=== PATIENT | female | born 1950 | race Caucasian/White ===

== ENCOUNTER → 2018-02-26 | Outpatient (CLI) | payer MEDICARE | LOC: LABWHC1 08:12 | PROVIDERS: ATTEND Nurse Practitioner | DX: R42 Dizziness and giddiness (principal); I10 Essential (primary) hypertension | CPT/HCPCS: 93005 ==

== ENCOUNTER → 2018-05-07 | Outpatient (CLI) | payer MEDICARE ==
--- NOTE | 2018-05-07 10:31 | ECHOF ---
Referral Reason:R01.1 heart murmur MEASUREMENTS -------- HEIGHT: 157.5 cm WEIGHT: 87.5 kg BP: RVIDd: 2.8 cm (< 3.3) IVSd: 1.2 cm (0.6 - 1.1) LVIDd: 4.2 cm (3.9 - 5.3) LVPWd: 1.2 cm (0.6 - 1.1) IVSs: 1.6 cm LVIDs: 2.5 cm LVPWs: 1.6 cm LAESV Index (A-L): 23.97 ml/m Ao Diam: 3.0 cm (2.0 - 3.7) AV Cusp: 1.7 cm (1.5 - 2.6) LA Diam: 3.3 cm (2.7 - 3.8) MV EXCURSION: 14.642 mm (> 18.000) MV EF SLOPE: 85 mm/s (70 - 150) EPSS: 0.6 cm MV E Alfredo: 0.84 m/s MV DecT: 252 ms MV A Alfredo: 1.02 m/s MV E/A Ratio: 0.83 AV maxP.40 mmHg AV meanP.36 mmHg RAP: 5.00 mmHg RVSP: 31.31 mmHg FINDINGS -------- Resting bradycardia (HR<60bpm). This was a technically adequate study. The left ventricular size is normal. There is mild concentric left ventricular hypertrophy. Overa ll left ventricular systolic function is normal with, an EF between 55 - 60 %. The right ventricle is mildly enlarged. Normal LA size by volume 22+/-6 ml/m2. The right atrium is normal in size. Aortic valve is trileaflet and is mildly thickened. There is no evidence of aortic regurgitation. There is no evidence of aortic stenosis. The mitral valve leaflets are mildly thickened. There is trace to mild mitral regurgitation. Trace tricuspid regurgitation present. Right ventricular systolic pressure is normal at < 35 mmHg. There is no evidence of pulmonary hypertension. The pulmonic valve was not well visualized. The aortic root size is normal. Normal inferior vena cava with normal inspiratory collapse consistent with estimated right atrial pre ssure of 5 mmHg. There is no pericardial effusion. CONCLUSIONS -------- 1. Resting bradycardia (HR<60bpm). 2. This was a technically adequate study. 3. The left ventricular size is normal. 4. There is mild concentric left ventricular hypertrophy. 5. Overall left ventricular systolic function is normal with, an EF between 55 - 60 %. 6. The right ventricle is mildly enlarged. 7. Normal LA size by volume 22+/-6 ml/m2. 8. Aortic valve is trileaflet and is mildly thickened. 9. The mitral valve leaflets are mildly thickened. 10. There is trace to mild mitral regurgitation. 11. Trace tricuspid regurgitation present. 12. Right ventricular systolic pressure is normal at < 35 mmHg. 13. There is no evidence of pulmonary hypertension. 14. The pulmonic valve was not well visualized. 15. The aortic root size is normal. 16. There is no pericardial effusion. LEGAL CONSULTANT: Héctor Modi RDCS
== END | disposition home or self-care (01) ==
LOC: EDSTATUS 04-14 11:30 → RADECHMAIN 08:15
PROVIDERS: ATTEND Family Medicine
DX: I34.0 Nonrheumatic mitral (valve) insufficiency (principal); R00.1 Bradycardia, unspecified
CPT/HCPCS: 93306

== ENCOUNTER → 2021-10-29 | Outpatient (CLI) | payer MEDICARE ==
--- NOTE | 2021-10-30 08:00 | ECHOF ---
Referral Reason:R01.1 Murmur MEASUREMENTS -------- HEIGHT: 154.9 cm WEIGHT: 89.8 kg BP: RVIDd: 3.7 cm (< 3.3) IVSd: 0.9 cm (0.6 - 1.1) LVIDd: 3.8 cm (3.9 - 5.3) LVPWd: 1.1 cm (0.6 - 1.1) IVSs: 1.5 cm LVIDs: 2.1 cm LVPWs: 1.7 cm LAESV Index (A-L): 24.00 ml/m Ao Diam: 2.8 cm (2.0 - 3.7) AV Cusp: 1.9 cm (1.5 - 2.6) LA Diam: 4.4 cm (2.7 - 3.8) MV E Alfredo: 0.82 m/s MV DecT: 180 ms MV A Alfredo: 1.01 m/s MV E/A Ratio: 0.81 RAP: 5.00 mmHg RVSP: 36.20 mmHg FINDINGS -------- Sinus rhythm. This was a technically adequate study. The left ventricular size is normal. Left ventricular wall thickness is normal. Overall left vent ricular systolic function is normal with, an EF between 55 - 60 %. The diastolic filling pattern is normal for the age of the patient 11.13. The right ventricle is mildly enlarged. Normal LA size by volume 22+/-6 ml/m2. The right atrial size is normal. Interatrial and interventricular septum intact. The aortic valve is trileaflet and appears structurally normal. There is no evidence of aortic regu rgitation. There is no evidence of aortic stenosis. No mitral regurgitation. Mild tricuspid regurgitation present. There is borderline pulmonary artery hypertension. The righ t ventricular systolic pressure, as measured by Doppler, is 36.20mmHg. There is no pulmonic regurgitation present. The aortic root size is normal. The inferior vena cava is mildly dilated. Echo free space represents a pericardial fat pad. There is no pericardial effusion. CONCLUSIONS -------- 1. The left ventricular size is normal. 2. Left ventricular wall thickness is normal. 3. Overall left ventricular systolic function is normal with, an EF between 55 - 60 %. 4. The diastolic filling pattern is normal for the age of the patient 11.13 5. The right ventricle is mildly enlarged. 6. The aortic valve is trileaflet and appears structurally normal. 7. Mild tricuspid regurgitation present. 8. There is borderline pulmonary artery hypertension. 9. The right ventricular systolic pressure, as measured by Doppler, is 36.20mmHg. 10. The inferior vena cava is mildly dilated. CERTIFIED NOVELL ENGINEER: Jami Richard RDCS
== END | disposition home or self-care (01) ==
LOC: RADECHMAIN 12:59
PROVIDERS: ATTEND Family Medicine
DX: I07.1 Rheumatic tricuspid insufficiency (principal); I27.21 Secondary pulmonary arterial hypertension
CPT/HCPCS: 93306

== ENCOUNTER → 2022-02-27 | Outpatient (CLI) | payer MEDICARE ==
[2022-02-27 11:29] LABS: Partial Thromboplastin Time 24.9 sec (22.0-30.0); Prothrombin Time 10.6 sec (9.0-12.0)
[2022-02-27 14:35] LABS: HCT 44.1 % (37.2-46.3); HGB 14.4 g/dL (12.0-15.0); MCH 31.2 pg (27.0-32.0); MCHC 32.7 g/dL (32.0-37.0); MCV 95.5 fL (80.0-97.0); Mean Platelet Volume 10.7 fL (9.5-12.2); NRBC Per 100 WBC 0 /100 WBCS (0.0-0.0); Platelet Count 268 X 10*3/uL (140-440); RBC 4.62 X 10*6/uL (4.10-5.20); RDW 12.4 % (11.5-14.5); WBC 5.42 X 10*3/uL (4.50-10.00)
[2022-02-27 15:15] LABS: African American GFR (CKD) 102.5 (60.0-200.0); Albumin 4.4 g/dL (3.8-4.9); Albumin/Globulin Ratio 1.52 (1.60-3.17); Anion Gap 12.1 mmol/L (10.00-18.00); BUN/Creat Ratio 18.57 Ratio (12.00-20.00); Calcium 9.5 mg/dL (8.7-10.3); Carbon Dioxide 25.9 mmol/L (20.0-27.5); Globulin 2.9 g/dL (1.6-3.3); Non-African American GFR(CKD) 88.4 (60.0-200.0); Potassium 4.5 mmol/L (3.5-5.5); Total Protein 7.3 g/dL (6.2-8.2)
[2022-02-27 19:04] LABS: Appearance,Urine Cloudy (Clear); Bilirubin,Urine Negative (Negative); Blood,Urine Negative (Negative); Color,Urine Yellow (Yellow); Ketones,Urine Negative (Negative); Nitrite,Urine Negative (Negative); Specific Gravity,Urine 1.018 (1.001-1.030); Urobilinogen,Urine 0.2 (0.2,1.0)
[2022-02-27 19:13] LABS: Bacteria,Urine None Seen /HPF (None Seen)
== END | disposition home or self-care (01) ==
LOC: LABPAT 09:22
PROVIDERS: ATTEND Orthopaedic Surgery
DX: Z01.812 Encounter for preprocedural laboratory examination (principal); M17.11 Unilateral primary osteoarthritis, right knee
CPT/HCPCS: 80053; 81001; 85027; 85610; 85730; 87070; 93005

== ENCOUNTER 2022-03-27 14:00 | Day surgery (SDC) | payer MEDICARE ==
[2022-03-21 15:21] VITALS: BMI 36.2
[~2022-03-27 14:00] MED LIST: ACETAMINOPHEN TAB 500 MG TAB PO PRN; DEXAMETHASONE SOD PHOSPHATE 10 MG/ML 1 ML VIAL IV PRN; DEXAMETHASONE SOD PHOSPHATE 4 MG/ML 1 ML VIAL IV ONE; DOCUSATE 100 MG CAP PO PRN; FAMOTIDINE 20 MG/2 ML VIAL IVP PRN; HYDROmorphone 0.5 MG/0.5 ML SYRINGE IVP PRN; KETOROLAC 15 MG/ML 1 ML VIAL IVP PRN; ONDANSETRON 4 MG/2 ML VIAL IVP ONE; ONDANSETRON 4 MG/2 ML VIAL IVP PRN; ROPIVACAINE/EPI/CLONIDINE/KET 50 ML SYRINGE MISCELLANE PRN; TRANEXAMIC ACID IN NACL,ISO-OS 1,000 MG in SALINE 1 100ML.BAG IVPB PRN; oxyCODONE ER 10 MG TAB.ER.12H PO PRN
[2022-03-27] MEDS ORDERED: LACTATED RINGERS 1,000 ML IV ONE (14:58)
[2022-03-27] MEDS ORDERED: fentaNYL (PF) 50 MCG/ML 2 ML AMP IVP ONE (15:03)
[2022-03-27] MEDS ORDERED: MIDAZOLAM 2 MG/2 ML VIAL IVP ONE (15:03)
[2022-03-27] MEDS ORDERED: TRANEXAMIC ACID IN NACL,ISO-OS 1,000 MG in SALINE 1 100ML.BAG IVPB ONE (15:36)
[2022-03-27] MEDS ORDERED: ROPIVACAINE 5 MG/ML 30 ML VIAL ONE (16:24)
[2022-03-27] MEDS ORDERED: ePHEDrine 50 MG/ML 1 ML VIAL ONE (16:24)
[2022-03-27] MEDS ORDERED: PROPOFOL 10 MG/ML 20 ML VIAL IV ONE (16:24)
[2022-03-27] MEDS ORDERED: TRANEXAMIC ACID IN NACL,ISO-OS 1,000 MG/100 ML BAG ONE (16:24)
[2022-03-27] MEDS ORDERED: SODIUM CHLORIDE 0.9% (PF) 10 ML VIAL ONE (16:24)
[2022-03-27] MEDS ORDERED: MIDAZOLAM 2 MG/2 ML VIAL ONE (16:24)
[2022-03-27] MEDS ORDERED: LIDOCAINE 2% INJ 20 MG/ML (2 ML VIAL) ONE (16:24)
--- NOTE | 2022-03-27 16:53 | P.ANPRN ---
Procedure Note - Anesthesia - Nerve Block Performed Right Adductor Canal Single Time Out Performed: Yes (1502) Date of Procedure: 03/27/22 Procedure Start Time: 15:03 Procedure Stop Time: 15:08 Location of Patient: PreOp Indication: Acute Post-Operative Pain, Requested by Surgeon Specifically requested for management of pain by DrAlfred: Mann James Sedation Type: Sedate with meaningful contact maintained Preparation: Sterile Prep, Sterile Dressing Position: Supine Catheter: None Needle Types: Pajunk Needle Gauge: 21 Ultrasound used to visualize needle placement: Yes Ultrasound used to observe medication spread: Yes Injectate: 0.5% Ropivacaine (see comment for volume) (15CC + 15CC NACL PF) Blood Aspirated: No Pain Paresthesia on Injection Noted: No Resistance on Injection: Normal Image Stored and Saved: Yes Events: Uneventful and Well Tolerated
--- NOTE | 2022-03-27 16:54 | P.ANPRN ---
Procedure Note - Anesthesia - Nerve Block Performed Right iPack Single Time Out Performed: Yes (5800) Date of Procedure: 03/27/22 Procedure Start Time: 15:09 Procedure Stop Time: 15:10 Location of Patient: PreOp Indication: Acute Post-Operative Pain, Requested by Surgeon Specifically requested for management of pain by DrAlfred: Mann James Sedation Type: Sedate with meaningful contact maintained Preparation: Sterile Prep Position: Supine Catheter: None Needle Types: Pajunk Needle Gauge: 21 Ultrasound used to visualize needle placement: Yes Ultrasound used to observe medication spread: Yes Injectate: 0.5% Ropivacaine (see comment for volume) (15CC + 15CC NACL PF) Blood Aspirated: No Pain Paresthesia on Injection Noted: No Resistance on Injection: Normal Image Stored and Saved: Yes Events: Uneventful and Well Tolerated
[2022-03-27] MEDS: ROPIVACAINE/EPI/CLONIDINE/KET 50 ML SYRINGE MISCELLANE PRN ×2 (17:13→17:35)
--- NOTE | 2022-03-27 18:49 | P.OP ---
Date of Procedure: 03/27/22 Preoperative Diagnosis: 1. Severe right knee osteoarthritis 2. Hypertension 3. Chronic right foot drop Postoperative Diagnosis: Same Procedure(s) Performed: Right total knee arthroplasty Implants: 1. [place] [employer] CR Femur Size #2 2. [place] [employer] [place] Tibial Base Size #3 3. [place] [employer] CS poly Size #3, 10-mm 4. [place] [employer] all poly patella, Size #29 Anesthesia: regional, spinal Surgeon: Mann James Clinical Science Consultant #1: Ana Lee Estimated Blood Loss (ml): 100 IV fluids (ml): 700 Pathology: none sent Condition: stable Disposition: PACU Indications for Procedure: I met with the patient preoperatively in the office setting and discussed treatment of their symptomatic knee arthritis. They failed a long course of nonsurgical treatment and elected to proceed with an elective total knee replacement. I discussed the potential risks and complications at length and gave them ample time to ask questions. Risks discussed included: risks from anesthesia, superficial site surgical infection, acute and/or chronic periprosthetic joint infection, delayed wound healing, drainage, wound necrosis, instability, stiffness, stiffness requiring manipulation and/or revision surgery, damage to local blood vessels or nerves, aseptic loosening of the implants, extensor mechanism issues including disruption, patellar maltracking, avascular necrosis etc., continued or worsened knee pain, generalized dissatisfaction with surgical outcome, need for revision surgery, an inability to regain preinjury level of function, DVT, PE, other medical complications, and possibly loss of life or limb. The patient voiced their understanding that while these are the most common complications other less common complications are possible. They provided both their verbal and written consent to go forward with surgery. Operative Findings: Severe tricompartmental osteoarthritis with complete cartilage loss and exposed subchondral bone diffusely throughout the knee Description of Procedure: The patient was identified in preoperative holding and the correct operative extremity was verified and marked with a marker. I reviewed the consent form with the patient at length. All of their questions were answered. The patient was given a block by anesthesia. They were then brought back to the operating room. They were transferred onto the operating room table where a general anesthetic, preoperative antibiotics, and tranexamic acid were administered by anesthesia. A tourniquet was applied to the proximal aspect of the operative extremity. The contralateral extremity was padded under the heel and secured to the operating room table with a nonsterile blue towel and tape. The ipsilateral arm was carefully draped across the patient's chest and secured with a pillow and foam. A post was applied over the lateral aspect of the ipsilateral thigh and a bolster was placed under the ipsilateral foot. I verified that the operative extremity was stable and the knee was flexed to 90. The operative extremity was then placed in a leg harden, nonsterile drapes were applied, and the extremity was prepped and draped sterilely in the standard sterile fashion. Prior to starting surgery timeout was performed identifying the correct patient, operative extremity, and procedure. The leg was then elevated, exsanguinated with an Esmarch bandage, and the tourniquet was inflated. An anterior midline incision was made sharply with a scalpel. Once I had dissected deep to the superficial fascial layer medial and lateral flaps were elevated. A medial parapatellar arthrotomy was created. Upon opening the knee joint there were diffuse arthritic changes in all 3 compartments. The anterior horn of the medial meniscus were sharply released and a medial release was performed around the posterior medial corner of the knee to facilitate retractor placement. The fat pad was excised with electrocautery. The patella was found to be severely arthritic and a provisional cut was made with a sagittal saw to facilitate mobilization of the extensor mechanism during the procedure. Remnants of the ACL and PCL were then excised from the notch. 4 mm pins were then placed within the incision in the medial distal femur and proximal tibia. Arrays were applied to the pins and I verified they were completely tightened. The knee was then registered with the [employer] robot and manipulations in implant position were made to balance the knee and opitmize implant position. Using the Fan robotic saw all cuts were made in accordance with our plan. After all bony fragments had been removed the cuts were verified with the planar probe. The tibia was then subluxed forward and sized. The knee was brought into flexion and a lamina pipelaying fitter was placed to allow removal of the meniscal remnants both medially and laterally as well as posterior osteophytes. Local anesthetic was then infiltrated around the joint capsule. Trial implants were then placed within the knee. Range of motion and collateral ligament tension was then evaluated. Adjustments in implant size and position were then made accordingly. Once the knee was felt to be appropriately balanced the Fan pins were removed. The patella was then recut, sized, and punched. A trial patellar button was then placed. With the trial components in place, the patella tracked midline. The femur was then drilled and the trial component removed. The trial tibial component was then appropriately rotated, pinned, and prepared for the keel. All trial components were then removed from the knee. The knee was thoroughly irrigated with pulsatile lavage. Cement was prepared via vacuum mixing in a bowl on the back table. I then hand pressurized cement into the femur and tibia and placed the implants beginning with the tibial base tray and poly liner, femoral component, and finally the patellar button. All extruded cement was removed including from the pin sites. Once the cement had hardened the knee was evaluated one final time with the final polyethylene liner in place. The knee had full extension and flexion and felt stable to varus and valgus stress t hroughout the arc of motion. The tourniquet was released and with the tourniquet down the patella tracked midline. All bleeders were controlled with electrocautery. The knee was then soaked for 3 minutes with a dilute Betadine soak. The knee was thoroughly irrigated using 3 L of sterile saline and pulsatile lavage. The extensor mechanism was then reapproximated using pop off Vicryl sutures followed by a running barbed suture. The knee was then closed in layers with a 0 strata fix for the deep fascial layer, 2-0 strata fix for the superficial subcutaneous layer and Monocryl and Steri-Strips for the skin. A sterile dressing was applied. I verified that all instrument, sponge, and sharp counts were correct. The patient was then transferred off the operating room table, extubated, and brought to recovery having tolerated the procedure well. Ana Lee PA-C was required as a skilled insurance administrative assistant due to the complexity of the procedure for patient positioning, draping, retraction, placement of hardware, and closure of wound. PLAN: The patient can weight-bear as tolerated on the operative extremity. DVT prophylaxis with aspirin 81 mg twice a day based on preoperative risk str atification. Follow-up in the office in 2 weeks for wound check and x-rays of the knee including an AP and lateral.
[2022-03-27] MEDS ORDERED: HYDROmorphone 0.5 MG/0.5 ML SYRINGE IVP PRN ×3 (18:50)
[2022-03-27] MEDS ORDERED: hydrOXYzine pamoate 25 MG CAP PO PRN (18:50)
[2022-03-27] MEDS ORDERED: NALOXONE 0.4 MG/ML 1 ML VIAL IV PRN (18:50)
[2022-03-27] MEDS ORDERED: traMADol 50 MG TAB PO PRN (18:55)
[2022-03-27] MEDS: LACTATED RINGERS 1,000 ML IV SCH ×2 (19:37→23:07)
[2022-03-27] MEDS ORDERED: IPRATROPIUM 0.5 MG/2.5 ML NEBU INHALATION PRN (20:38)
[2022-03-27] MEDS ORDERED: SYMBICORT 80-4.5 MCG INHALER INHALATION PRN (20:50)
[2022-03-27] MEDS ORDERED: SENNOSIDES-DOCUSATE SODIUM 1 EACH TAB PO SCH (21:00)
[2022-03-27] MEDS: ASPIRIN 81 MG PO SCH (22:34)
[2022-03-27] MEDS: VERAPAMIL SR 180 MG TABLET.ER PO SCH (22:35)
[2022-03-28] MEDS ORDERED: ACETAMINOPHEN TAB 325 MG TAB PO PRN (02:53)
[2022-03-28] MEDS: LACTATED RINGERS 1,000 ML IV SCH ×2 (04:53→04:54)
[2022-03-28 07:51] VITALS: BP 138/78; PULSE 60; RESP 17; TEMP 98.1
--- NOTE | 2022-03-28 08:54 | P.DS ---
Providers Expected date of discharge: 03/28/22 Attending physician: Mann James Consults: 03/27/22 18:50 Consult Physician Routine Consulting Provider: Rupa John Consult Reason/Comments: medical management Do you want consulting provider notified?: Yes Primary care physician: Roseanne Cerrato [facility] Course: This is a 71-year-old female who has been followed in our office by Dr. James for continued complaints of right knee pain due to right knee osteoarthritis. Treatment options were discussed, and patient elected to undergo a right total knee arthroplasty. Patient was seen pre-operatively by Dr. Cerrato and cleared for surgery. Patient underwent a right total knee arthroplasty on 03/27/[address] James. The procedure was performed without complication or sequelae. The patient is doing fairly well postoperatively. Vital signs and labs are stable on postoperative day #1. Patient was examined bedside today with Dr. James. Patient states she is overall doing very well and the pain in her right knee is well-controlled. Patient is tolerating her diet well. Patient is comfortable being discharged home today. On examination, the patient is sitting up in the bed in no apparent distress. She is alert and orientated 3. On inspection of the right knee, there is a clean, dry, intact Opsite dressing in place. There is no bleeding or drainage the dressing. Patient has chronic right foot drop. Motor and sensory function is intact of the right lower extremity. The dorsalis pedis pulse is easily palpable, the right lower extremity is warm and well perfused with brisk capillary refill. Calf is soft and non-tender to palpation. Patient is discharged home with home health care today in good condition, pending medical clearance. Patient will follow-up with Dr. James in the office in 2 weeks. Please see med rec for accurate list of discharge medication. Plan - Discharge Summary Discharge Rx Participant: Yes New Discharge Prescriptions: New Aspirin 81 mg PO BID 30 Days #60 tab Omeprazole 40 mg PO DAILY 30 Days #30 cap Docusate [Colace] 100 mg PO BID #60 capsule traMADol HCl [Ultram] 50 mg PO Q4-6H PRN 7 Days #32 tab PRN Reason: Pain Diclofenac Sodium [Voltaren] 75 mg PO BID 30 Days #60 tab No Action Multivit-Min/Iron/Folic/Lutein [Centrum Silver Women Tablet] 1 each PO DAILY Aspirin 325 mg PO DAILY PRN PRN Reason: Pain Calcium Carbonate [Calcium] 600 mg PO DAILY Glucosam/Hiren-Msm1/C/Baron/Bosw [Glucosamine-Chondroitin Tablet] 2 each PO DAILY Verapamil HCl [Verapamil ER] 180 mg PO BID Fluticasone/Umeclidin/Vilanter [Trelegy Ellipta 200-62.5-25] 1 puff INHALATION DIRECTED PRN PRN Reason: sob Cholecalciferol [Vitamin D3 (25 Mcg = 1000 Iu)] 50 mcg PO DAILY Discharge Medication List Aspirin 325 mg PO DAILY PRN 03/21/22 [History] Calcium Carbonate [Calcium] 600 mg PO DAILY 03/21/22 [History] Cholecalciferol [Vitamin D3 (25 Mcg = 1000 Iu)] 50 mcg PO DAILY 03/21/22 [History] Fluticasone/Umeclidin/Vilanter [Trelegy Ellipta 200-62.5-25] 1 puff INHALATION DIRECTED PRN 03/21/22 [History] Glucosam/Hiren-Msm1/C/Baron/Bosw [Glucosamine-Chondroitin Tablet] 2 each PO DAILY 03/21/22 [History] Multivit-Min/Iron/Folic/Lutein [Centrum Silver Women Tablet] 1 each PO DAILY 03/21/22 [History] Verapamil HCl [Verapamil ER] 180 mg PO BID 03/21/22 [History] Aspirin 81 mg PO BID 30 Days #60 tab 03/28/22 [Rx] Diclofenac Sodium [Voltaren] 75 mg PO BID 30 Days #60 tab 03/28/22 [Rx] Docusate [Colace] 100 mg PO BID #60 capsule 03/28/22 [Rx] Omeprazole 40 mg PO DAILY 30 Days #30 cap 03/28/22 [Rx] traMADol HCl [Ultram] 50 mg PO Q4-6H PRN 7 Days #32 tab 03/28/22 [Rx] Follow up Appointment(s)/Referral(s): Mann James MD [Medical Doctor] - 2 Weeks Activity/Diet/Wound Care/Special Instructions: Weight-bear to tolerance on operative extremity with a walker. Keep operative dressing intact until follow-up appointment in the office. Call the office if dressing becomes saturated or falls off. May shower over dr mejia. Take pain medications as needed. Take aspirin 81 mg twice a day 4 weeks for blood clot prevention. Follow-up in the office in [address] James. Call the office with any questions or concerns, Discharge Disposition: HOME WITH HOME HEALTH SERVICES
[2022-03-28] MEDS ORDERED: CALCIUM CARBONATE 500 MG CHEWABLE PO SCH (09:00)
[2022-03-28] MEDS ORDERED: NON FORMULARY DRUG (Glucosam/Chon-Msm1/C/Mang/Bosw [Glucosamine-Chondroitin Tablet] 1 EACH PO SCH (09:00)
[2022-03-28] MEDS ORDERED: MULTIVITAMINS, THERA 1 EACH TAB PO SCH (09:00)
[2022-03-28] MEDS ORDERED: CHOLECALCIFEROL 25 MCG (1000 IU) TABLET PO SCH (09:00)
[2022-03-28 10:29] LABS: Basophils # (A) 0.02 X 10*3/uL (0.00-0.10); Basophils % (A) 0.2 %; Eosinophils # (A) 0 X 10*3/uL (0.04-0.35); Eosinophils % (A) 0 %; HCT 36.4 % (37.2-46.3); HGB 12.2 g/dL (12.0-15.0); Immature Grans, Automated 0.5 %; Lymphocytes # (A) 1.01 X 10*3/uL (0.90-5.00); Lymphocytes % (A) 7.8 %; MCH 31.6 pg (27.0-32.0); MCHC 33.5 g/dL (32.0-37.0); MCV 94.3 fL (80.0-97.0); Mean Platelet Volume 10.9 fL (9.5-12.2); Monocytes % (A) 7.7 %; NRBC Per 100 WBC 0 /100 WBCS (0.0-0.0); Neutrophils # (A) 10.87 X 10*3/uL (1.80-7.70); Neutrophils % (A) 83.8 %; Platelet Count 259 X 10*3/uL (140-440); RBC 3.86 X 10*6/uL (4.10-5.20); RDW 12.4 % (11.5-14.5); WBC 12.97 X 10*3/uL (4.50-10.00)
[2022-03-28] MEDS: ASPIRIN 81 MG PO SCH (10:39)
[2022-03-28] MEDS: VERAPAMIL SR 180 MG TABLET.ER PO SCH (11:23)
--- NOTE | 2022-03-28 13:17 | XR ---
EXAMINATION TYPE: XR knee limited RT DATE OF EXAM: 03/28/2022 CLINICAL HISTORY: Right knee pain and arthritis status post total knee replacement. TECHNIQUE: Portable AP and crosstable lateral views of the right knee are obtained immediately posto peratively. COMPARISON: CT right knee March 13, 2022 FINDINGS: Metallic hardware from total right knee arthroplasty is seen and appears satisfactory in a lignment and position. There is evidence of recent surgery with diffuse subcutaneous gas and soft ti ssue swelling noted. IMPRESSION: METALLIC HARDWARE FROM TOTAL RIGHT KNEE ARTHROPLASTY IS SATISFACTORY IN ALIGNMENT.
--- NOTE | 2022-03-28 23:25 | P.CONS ---
History of Present Illness - History of Present Illness This is a pleasant 71 years old female with past medical history of asthma/COPD, hypertension, osteoarthritis. Was admitted for her osteoarthritic problem and she underwent right total knee arthroplasty. Today is postoperative day #1. Looks like her pain is controlled. She denies chest pain or dyspnea. No abdominal complaints. No nausea vomiting or diarrhea. Vitals are stable and patient is afebrile She has mild leukocytosis, most likely reactive. Hemoglobin is stable. Patient instructed to resume her blood pressure medication and keep monitoring closely. She verbalized understanding and acceptance. at bedside. Patient is hemodynamically stable. Blood pressure 138/78. WBC 12.9. Trace of CBC is unremarkable. Hemoglobin normal at 12.2. Review of Systems Review of systems CONSTITUTIONAL: No fever, no malaise, no fatigue. HEENT: No recent visual problems or hearing problems. Denied any sore throat. CARDIOVASCULAR: No orthopnea, PND, no palpitations, no syncope. PULMONARY: No shortness of breath, no cough, no hemoptysis. GASTROINTESTINAL: No diarrhea, no nausea, no vomiting, no abdominal pain. Normoactive bowel sounds. NEUROLOGICAL: No headaches, no weakness, no numbness. HEMATOLOGICAL: Denies any bleeding or petechiae. GENITOURINARY: Denies any burning micturition, frequency, or urgency. MUSCULOSKELETAL/RHEUMATOLOGICAL: Denies any joint pain, swelling, or any muscle pain. ENDOCRINE: Denies any polyuria or polydipsia. Past Medical History Past Medical History: Asthma, COPD, Hypertension, Osteoarthritis (OA) Additional Past Medical History / Comment(s): heart murmer, "I don't get enough oxygen to the heart at times", ""foot drop" rt foot, "over active bladder" "vertigo" History of Any Multi-Drug Resistant Organisms: None Reported Past Surgical History: Orthopedic Surgery Additional Past Surgical History / Comment(s): rotator cuff rt shoulder, ORIF left wrist, Past Anesthesia/Blood Transfusion Reactions: Motion Sickness Past Psychological History: No Psychological Hx Reported Smoking Status: Never smoker Past Alcohol Use History: Rare Past Drug Use History: None Reported - Past Family History Mother Family Medical History: No Reported History Medications and Allergies Home Medications Medication Instructions Recorded Confirmed Type Aspirin 325 mg PO DAILY PRN 03/21/22 03/27/22 History Calcium Carbonate [Calcium] 600 mg PO DAILY 03/21/22 03/27/22 History Cholecalciferol [Vitamin D3 (25 50 mcg PO DAILY 03/21/22 03/27/22 History Mcg = 1000 Iu)] Fluticasone/Umeclidin/Vilanter 1 puff INHALATION DIRECTED PRN 03/21/22 03/27/22 History [Trelegy Ellipta 200-62.5-25] Glucosam/Hiren-Msm1/C/Baron/Bosw 2 each PO DAILY 03/21/22 03/27/22 History [Glucosamine-Chondroitin Tablet] Multivit-Min/Iron/Folic/Lutein 1 each PO DAILY 03/21/22 03/27/22 History [Centrum Silver Women Tablet] Aspirin 81 mg PO BID 30 Days #60 tab 03/28/22 Rx Diclofenac Sodium [Voltaren] 75 mg PO BID 30 Days #60 tab 03/28/22 Rx Docusate [Colace] 100 mg PO BID #60 capsule 03/28/22 Rx Omeprazole 40 mg PO DAILY 30 Days #30 cap 03/28/22 Rx Verapamil HCl [Verapamil ER] 180 mg PO BID #0 03/28/22 03/27/22 Rx traMADol HCl [Ultram] 50 mg PO Q4-6H PRN 7 Days #32 tab 03/28/22 Rx Allergies Allergy/AdvReac Type Severity Reaction Status Date / Time codeine Allergy Vomiting Verified 03/27/22 14:24 Sulfa (Sulfonamide Allergy Anaphylaxis Verified 03/27/22 14:24 Antibiotics) narcotics Allergy Vomiting Uncoded 03/27/22 14:24 Physical Exam Vitals: Vital Signs Temp Pulse Pulse Pulse Resp BP BP 03/28/22 08:35 60 17 03/28/22 07:49 98.1 F 60 17 138/78 03/28/22 02:39 97.3 F L 67 18 121/65 03/27/22 23:23 58 L 16 03/27/22 21:30 58 L 113/67 03/27/22 21:15 73 109/58 03/27/22 21:00 60 118/71 03/27/22 20:45 60 122/71 03/27/22 20:30 65 138/77 03/27/22 20:15 69 121/56 03/27/22 20:00 80 152/63 03/27/22 19:45 97.4 F L 61 17 134/69 03/27/22 19:27 72 16 121/59 03/27/22 19:13 60 16 126/61 03/27/22 18:58 64 16 118/56 03/27/22 18:43 97 F L 65 16 116/57 03/27/22 15:10 97 15 133/62 03/27/22 14:30 97.2 F L 53 L 16 155/67 Pulse Ox 03/28/22 08:35 03/28/22 07:49 96 03/28/22 02:39 96 03/27/22 23:23 03/27/22 21:30 90 L 03/27/22 21:15 03/27/22 21:00 91 L 03/27/22 20:45 95 03/27/22 20:30 95 03/27/22 20:15 95 03/27/22 20:00 95 03/27/22 19:45 95 03/27/22 19:27 96 03/27/22 19:13 99 03/27/22 18:58 99 03/27/22 18:43 97 03/27/22 15:10 97 03/27/22 14:30 98 Intake and Output 03/27/22 03/28/22 03/28/22 22:59 06:59 14:59 Intake Total 750 Output Total 100 Balance 650 Intake: IV 750 Output: Estimated Blood Loss 100 Other: Voiding Method Toilet Toilet # Voids 4 Weight 90.3 kg GENERAL: The patient is alert and oriented x3, not in any acute distress. Well developed, well nourished. HEENT: Pupils are round and equally reacting to light. EOMI. No scleral icterus. No conjunctival pallor. Normocephalic, atraumatic. No pharyngeal erythema. No thyromegaly. CARDIOVASCULAR: S1 and S2 present. No murmurs, rubs, or gallops. PULMONARY: Chest is clear to auscultation, no wheezing or crackles. ABDOMEN: Soft, nontender, nondistended, normoactive bowel sounds. No palpable organomegaly. MUSCULOSKELETAL: No joint swelling or deformity. -EXTREMITIES: No cyanosis, clubbing, or pedal edema. Right knee surgical wound is with dressing a Place. Rest of exam is deferred to surgery team NEUROLOGICAL: Gross neurological examination did not reveal any focal deficits. SKIN: No rashes. no petechiae. Results CBC & Chem 7: 03/28/22 06:16 Labs: Abnormal Lab Results - Last 24 Hours (Table) 03/28/22 Range/Units 06:16 WBC 12.97 H (4.50-10.00) X 10*3/uL RBC 3.86 L (4.10-5.20) X 10*6/uL Hct 36.4 L (37.2-46.3) % Immature Gran # 0.07 H (0.00-0.04) X 10*3/uL Neutrophils # 10.87 H (1.80-7.70) X 10*3/uL Eosinophils # 0 L (0.04-0.35) X 10*3/uL Assessment and Plan Assessment: -Severe osteoarthritis status post right TKA. Today is postoperative day #1 -Hypertension, continue same medication -Asthma/COPD, not an active issue -Mild leukocytosis, mostly reactive. No signs of infection. No need for antibiotics. Keep monitoring WBC Continue with pain management and DVT prophylaxis as per primary team Patient is medically stable Thank you for consulting us Patient was instructed to follow up with PCP in one week after discharge and she verbalized understanding and acceptance
== END 2022-03-28 12:14 | disposition home health service (06) ==
LOC: OR 14:00 → 4SSUR 18:37 → OR 03-28 12:14
PROVIDERS: ATTEND Orthopaedic Surgery
DX: M17.0 Bilateral primary osteoarthritis of knee (principal); G89.18 Other acute postprocedural pain; I10 Essential (primary) hypertension; M21.371 Foot drop, right foot; J45.909 Unspecified asthma, uncomplicated; Z79.899 Other long term (current) drug therapy; Z79.82 Long term (current) use of aspirin; Z88.2 Allergy status to sulfonamides; Z88.5 Allergy status to narcotic agent; Z83.3 Family history of diabetes mellitus; Z82.49 Family history of ischemic heart disease and other diseases of the circulatory system
CPT/HCPCS: 97162; 97166; 64447; 64445; 76942; 85025; 73560; 27447; C1776; C1713; J2250; J1100; J0690 ×2; J2405; J3010; J2795; J1885; J2704; J2001

== ENCOUNTER → 2022-04-09 | Outpatient (CLI) | payer MEDICARE ==
--- NOTE | 2022-04-09 13:54 | US ---
EXAMINATION TYPE: US venous doppler duplex LE RT DATE OF EXAM: 04/09/2022 1:05 PM COMPARISON: NONE CLINICAL HISTORY: Z47.1, I80.9 PHLEBITIS AND THROMBOPHLEBITIS OF UNS. SIDE PERFORMED: Right TECHNIQUE: The lower extremity deep venous system is examined utilizing real time linear array sonog diana with graded compression, doppler sonography and color-flow sonography. VESSELS IMAGED: Common Femoral Vein Deep Femoral Vein Greater Saphenous Vein * Femoral Vein Popliteal Vein Small Saphenous Vein * Proximal Calf Veins (* superficial vessels) Right Leg: Negative for DVT Right probable Chinchilla's cyst measuring 3.3 x 1.0 x 2.8cm Grayscale, color doppler, spectral doppler imaging performed of the deep veins of the lower extremiti es. There is normal flow, compressibility, vascular waveforms. IMPRESSION: 1. No evidence of right lower extremity deep vein thrombosis. 2. Popliteal fossa cyst.
== END | disposition home or self-care (01) ==
LOC: RADUSWWP 12:01
PROVIDERS: ATTEND Orthopaedic Surgery
DX: I80.9 Phlebitis and thrombophlebitis of unspecified site (principal); M71.21 Synovial cyst of popliteal space [Baker], right knee

== ENCOUNTER → 2022-04-17 | Outpatient (CLI) | payer MEDICARE ==
[2022-04-17 18:26] LABS: ALT 19 U/L (8-44); AST 27 U/L (13-35); African American GFR (CKD) 104.7 (60.0-200.0); Albumin 4.2 g/dL (3.8-4.9); Alkaline Phosphatase 112 U/L (41-126); Blood Urea Nitrogen 11.2 mg/dL (9.0-27.0); Calcium 9.9 mg/dL (8.7-10.3); Chloride 102 mmol/L (96-109); Chol/HDL Ratio 3.14 Ratio; Glucose 100 mg/dL (70-110); LDL Cholesterol,Calculated 93.9 mg/dL (0.0-131.0); Non-African American GFR(CKD) 90.4 (60.0-200.0); Potassium 5.1 mmol/L (3.5-5.5); Sodium 139 mmol/L (135-145); Total Protein 7.1 g/dL (6.2-8.2)
== END | disposition home or self-care (01) ==
LOC: LABWHC1 10:52
PROVIDERS: ATTEND Nurse Practitioner Family
DX: Z00.00 Encounter for general adult medical examination without abnormal findings (principal); I10 Essential (primary) hypertension; E66.01 Morbid (severe) obesity due to excess calories; R94.5 Abnormal results of liver function studies
CPT/HCPCS: 36415; 80053; 80061; 82306; 83036; 84443

== ENCOUNTER → 2022-11-01 | Outpatient (CLI) | payer MEDICARE ==
--- NOTE | 2022-11-02 10:01 | CA ---
Transthoracic Echo Report Name: Jennifer Angulo Age: 71 Gender: F : 1950 Exam Date: 11/01/2022 14:24 Exam Location: [facility] Ht (in): 61 Wt (lb): 200 Ordering Physician: Roseanne Cerrato MD Attending/Referring Phys: Edgar Silva [facility] Histologist Technologist Pippa Browne RDCS Procedure CPT: Indications: I27.20 PULMONARY HYPERTENSION Cardiac Hx: Technical Quality: Good Contrast 1: Total Dose (mL): Contrast 2: Total Dose (mL): MEASUREMENTS (Male / Female) Normal Values 2D ECHO LV Diastolic Diameter PLAX 4.7 cm 4.2 - 5.9 / 3.9 - 5.3 cm LV Systolic Diameter PLAX 2.9 cm IVS Diastolic Thickness 1.1 cm 0.6 - 1.0 / 0.6 - 0.9 cm LVPW Diastolic Thickness 1.1 cm 0.6 - 1.0 / 0.6 - 0.9 cm LV Relative Wall Thickness 0.5 RV Internal Dim ED PLAX 3.2 cm LA Systolic Diameter LX 3.5 cm 3.0 - 4.0 / 2.7 - 3.8 cm LA Volume 52.7 cm??? 18 - 58 / 22 - 52 cm??? M-MODE Aortic Root Diameter MM 3.3 cm MV E Point Septal Separation 0.4 cm AV Cusp Separation MM 2.0 cm DOPPLER AV Peak Velocity 220.0 cm/s AV Peak Gradient 19.4 mmHg AV Mean Velocity 118.9 cm/s AV Mean Gradient 7.0 mmHg AV Velocity Time Integral 41.1 cm MV Area PHT 2.4 cm??? Mitral E Point Velocity 82.6 cm/s Mitral A Point Velocity 97.7 cm/s Mitral E to A Ratio 0.8 MV Deceleration Time 314.1 ms MV E' Velocity 6.5 cm/s Mitral E to MV E' Ratio 12.6 TR Peak Velocity 258.2 cm/s TR Peak Gradient 26.7 mmHg Right Ventricular Systolic Press 30.9 mmHg FINDINGS Left Ventricle Left ventricular ejection fraction is estimated at 55-60 %. Left ventricular cavity size normal. Mildly increased septal wall thickness. Mildly increased posterior wall thickness. Right Ventricle Normal right ventricular size and function. Right ventricular systolic pressure within normal limits. Right ventricular systolic pressure estimated at 31 mm hg. Right Atrium Normal right atrial size. Left Atrium Normal left atrial size. Mitral Valve Structurally normal mitral valve. No mitral stenosis, regurgitation or prolapse. Aortic Valve Trileaflet aortic valve. No aortic valve stenosis or regurgitation. However there is some grradient on AOV max 19 mmHg and mean 7 mmHg Tricuspid Valve Structurally normal tricuspid valve. Mild tricuspid regurgitation. Pulmonic Valve Structurally normal pulmonic valve. No pulmonic regurgitation. Pericardium Normal pericardium. No pericardial effusion. Aorta Normal size aortic root and proximal ascending aorta. CONCLUSIONS Left ventricular ejection fraction 55-60% Mildly increased left ventricular wall thickness RVSP 31 Mild tricuspid regurgitation No pericardial effusion Previewed by: Dr. Angus Cesar DO (Electronically Signed) Final Date: 02 November 2022 10:01
== END | disposition home or self-care (01) ==
LOC: RADECHMAIN 14:09
PROVIDERS: ATTEND Family Medicine
DX: I07.1 Rheumatic tricuspid insufficiency (principal); I27.20 Pulmonary hypertension, unspecified
CPT/HCPCS: 93306

== ENCOUNTER → 2022-12-07 | Outpatient (CLI) | payer MEDICARE ==
--- NOTE | 2022-12-07 11:12 | MR ---
EXAMINATION TYPE: MR brain/cspine wo DATE OF EXAM: 12/07/2022 COMPARISON: NONE HISTORY: Tremors, cervicalgia TECHNIQUE: Multiplanar, multisequence imaging of the brain and brainstem and cervical spine are perfo rmed without IV contrast. FINDINGS: Brain: Diffusion weighted images demonstrate no evidence of a recent infarct or other diffusion abnormality. There is mild ventricular and sulcal prominence. No significant white matter changes. Midline structures demonstrate normal morphology. The craniocervical junction appears within normal limits. Normal vascular flow voids are present. The visualized sinuses are clear and the globes are i ntact. IMPRESSION: Mild diffuse cerebral atrophy otherwise unremarkable study. MRI CERVICAL SPINE: Slightly suboptimal secondary to motion artifact degradation. Sagittal images of the cervical spine show the craniocervical junction to appear within normal limits . The cervical and upper thoracic spinal cord is normal in course, caliber, and signal. Vertebral a lignment is anatomic. The vertebral body and intravertebral disk heights are normal. The bone marro w signal intensity is within normal limits. Axial images at C5-C6 levels show small right paracentral disc protrusion mildly facing anterior thec al sac. Remainder cervical levels appear within normal limits. IMPRESSION: Small posterior disc herniation C5-C6 level.
== END | disposition home or self-care (01) ==
LOC: RADMRIMAIN 09:18
PROVIDERS: ATTEND Psychiatry & Neurology Neurology
DX: M50.222 Other cervical disc displacement at C5-C6 level (principal); G25.0 Essential tremor
CPT/HCPCS: 70551; 72141

== ENCOUNTER → 2023-02-12 | Outpatient (CLI) | payer MEDICARE ==
--- NOTE | 2023-02-12 16:02 | CT ---
EXAMINATION TYPE: CT left knee - [facility] Protocol DATE OF EXAM: 02/12/2023 COMPARISON: None HISTORY: 72-year-old female M25.562, Left knee pain-KASHIF TECHNIQUE: CT for surgical planning purposes. Scanning through the bilateral hips, left knee, and bot h ankles with coronal and sagittal reconstructions. CT DLP: 1249 mGycm Automated exposure control for dose reduction was used. FINDINGS: There is mild degenerative change of the hips. Uterus is retroverted. Small bilateral ovaries. Osteit is pubis. Tricompartmental osteoarthrosis, end-stage in the medial compartment and lateral facets of the patell ofemoral compartment. Small knee joint effusion. Underlying bilateral midfoot osteoarthrosis. Additional prominent spurring along the right medial mal leolus possibly sequela of prior ligamentous injury. IMPRESSION: IMAGING OF THE LEFT KNEE FOR SURGICAL PLANNING PURPOSES. MILD BILATERAL HIP OA. OSTEITIS PUBIS. TRICO MPARTMENTAL OSTEOARTHROSIS, END-STAGE IN THE MEDIAL AND PATELLOFEMORAL COMPARTMENTS. ADDITIONAL UNDER LYING MIDFOOT OSTEOARTHROSIS WITHIN BOTH FEET.
== END | disposition home or self-care (01) ==
LOC: RADCTMAIN 10:49
PROVIDERS: ATTEND Orthopaedic Surgery
DX: Z01.818 Encounter for other preprocedural examination (principal); M17.12 Unilateral primary osteoarthritis, left knee; M16.0 Bilateral primary osteoarthritis of hip; M19.071 Primary osteoarthritis, right ankle and foot; M19.072 Primary osteoarthritis, left ankle and foot

== ENCOUNTER → 2023-02-14 | Outpatient (CLI) | payer MEDICARE ==
[2023-02-14 13:39] LABS: Basophils # (A) 0.05 X 10*3/uL (0.00-0.10); Eosinophils % (A) 3.9 %; HCT 43.8 % (37.2-46.3); HGB 14.4 d/dL (12.0-15.0); Lymphocytes % (A) 42.4 %; MCH 31.6 pg (27.0-32.0); MCHC 32.9 d/dL (32.0-37.0); MCV 96.1 FL (80.0-97.0); Mean Platelet Volume 10.4 FL (9.5-12.2); Monocytes # (A) 0.64 X 10*3/uL (0.20-1.00); Monocytes % (A) 12.3 %; NRBC Per 100 WBC 0 X 10*3/uL (0.00-0.01); Neutrophils # (A) 2.08 X 10*3/uL (1.80-7.70); Platelet Count 277 X 10*3/uL (140-440); RBC 4.56 X 10*6/uL (4.10-5.20); RDW 12.5 % (11.5-14.5); WBC 5.19 X 10*3/uL (4.50-10.00)
== END | disposition home or self-care (01) ==
LOC: LABWHC1 08:58
PROVIDERS: ATTEND Family Medicine
DX: Z01.818 Encounter for other preprocedural examination (principal); R00.1 Bradycardia, unspecified
CPT/HCPCS: 36415; 85025; 93005

== ENCOUNTER → 2023-04-18 | Outpatient (CLI) | payer MEDICARE | END | disposition home or self-care (01) | LOC: LABWHC1 10:52 | PROVIDERS: ATTEND Family Medicine | DX: Z00.00 Encounter for general adult medical examination without abnormal findings (principal); I10 Essential (primary) hypertension; E55.9 Vitamin D deficiency, unspecified ==

== ENCOUNTER → 2023-05-14 | Outpatient (CLI) | payer MEDICARE ==
[2023-05-14 15:48] LABS: ALT 30 U/L (8-44); AST 25 U/L (13-35); Albumin 4.7 d/dL (3.8-4.9); Albumin/Globulin Ratio 2.14 Ratio (1.60-3.17); Alkaline Phosphatase 107 U/L (41-126); Calcium 9.7 mg/dL (8.7-10.3); Carbon Dioxide 22.3 mmol/L (21.6-31.8); Chloride 103 mmol/L (96-109); Chol/HDL Ratio 3.12 Ratio; Globulin 2.2 d/dL (1.6-3.3); Glucose 112 mg/dL (70-110); LDL Cholesterol,Calculated 86.8 mg/dL (0.0-131.0); Potassium 5.3 mmol/L (3.5-5.5); Sodium 140 mmol/L (135-145); Total Bilirubin 0.5 mg/dL (0.3-1.2); Total Protein 6.9 d/dL (6.2-8.2)
[2023-05-14 15:58] LABS: HCT 42.8 % (37.2-46.3); HGB 13.6 d/dL (12.0-15.0); MCH 30.6 pg (27.0-32.0); MCHC 31.8 d/dL (32.0-37.0); MCV 96.4 FL (80.0-97.0); Mean Platelet Volume 10.3 FL (9.5-12.2); NRBC Per 100 WBC 0 X 10*3/uL (0.00-0.01); Platelet Count 282 X 10*3/uL (140-440); RBC 4.44 X 10*6/uL (4.10-5.20); RDW 12.4 % (11.5-14.5); WBC 4.45 X 10*3/uL (4.50-10.00)
== END | disposition home or self-care (01) ==
LOC: LABWHC1 09:02
PROVIDERS: ATTEND Family Medicine
DX: Z00.00 Encounter for general adult medical examination without abnormal findings (principal); I10 Essential (primary) hypertension; E55.9 Vitamin D deficiency, unspecified
CPT/HCPCS: 36415; 80053; 80061; 82306; 83036; 84443; 85027

== ENCOUNTER → 2024-04-28 | Outpatient (CLI) | payer MEDICARE ==
[2024-04-28 15:04] LABS: HCT 43.9 % (37.2-46.3); HGB 14.3 g/dL (12.0-15.0); MCH 31.4 pg (27.0-32.0); MCHC 32.6 g/dL (32.0-37.0); MCV 96.3 FL (80.0-97.0); Mean Platelet Volume 10.7 FL (9.5-12.2); NRBC Per 100 WBC 0 X 10*3/uL (0.00-0.01); Platelet Count 273 X 10*3/uL (140-440); RBC 4.56 X 10*6/uL (4.10-5.20); RDW 12.4 % (11.5-14.5); WBC 4.64 X 10*3/uL (4.50-10.00)
[2024-04-28 15:46] LABS: ALT 44 U/L (8-44); AST 32 U/L (13-35); Albumin 4.5 g/dL (3.8-4.9); Albumin/Globulin Ratio 1.96 Ratio (1.60-3.17); Alkaline Phosphatase 108 U/L (41-126); BUN/Creat Ratio 20.71 Ratio (12.00-20.00); Blood Urea Nitrogen 14.5 mg/dL (9.0-27.0); Calcium 9.7 mg/dL (8.7-10.3); Carbon Dioxide 28.9 mmol/L (21.6-31.8); Chloride 102 mmol/L (96-109); Chol/HDL Ratio 3.85 Ratio; Globulin 2.3 g/dL (1.6-3.3); Glucose 119 mg/dL (70-110); LDL Cholesterol,Calculated 101.7 mg/dL (0.0-131.0); Potassium 5.2 mmol/L (3.5-5.5); Sodium 141 mmol/L (135-145); Total Bilirubin 1.2 mg/dL (0.3-1.2); Total Protein 6.8 g/dL (6.2-8.2)
== END | disposition home or self-care (01) ==
LOC: LABWHC1 08:54
PROVIDERS: ATTEND Family Medicine
CPT/HCPCS: 36415; 80053; 80061; 82306; 83036; 84443; 85027